=== PATIENT | female | born 1995 | race Caucasian/White ===

== ENCOUNTER 2018-06-07 17:12 | Inpatient (IN) | payer BC ==
[~2018-06-07] VITALS: Ht 162.6 cm; Wt 74.0 kg
[2018-06-07 19:28] VITALS: BP 123/88
[2018-06-07] MEDS ORDERED: mag hydrox/Alum hydrox/simeth 30ml oral suspension PO PRN (19:45)
[2018-06-07] MEDS ORDERED: magnesium hydroxide 30ml (MOM) UD suspension PO PRN (19:45)
[2018-06-07] MEDS ORDERED: acetaminophen 325mg tablet PO PRN (19:45)
[2018-06-07] MEDS: zolpidem 5mg tablet PO PRN (20:44)
[2018-06-07] MEDS: LORazepam 0.5 MG tablet PO PRN (20:44)
[2018-06-07] MEDS: hydrOXYzine 25 MG tablet PO PRN (21:39)
[2018-06-08] MEDS ORDERED: voritioxetine HBr 5mg tablet PO ONE (08:10)
[2018-06-08 08:43] VITALS: BP 132/72
[2018-06-08 08:44] LABS: HEMOGLOBIN A1C 5.2 % (4.5-6.2)
[2018-06-08 08:57] LABS: CHOL/HDL RATIO 3.4 (0.00-4.99); CHOLESTEROL 231 MG/DL (0-200); HDL CHOLESTEROL 67 MG/DL (35-60); LDL CHOLESTEROL 152 MG/DL (50-100); TRIGLYCERIDES 116 MG/DL (20-135)
[2018-06-08] MEDS ORDERED: LISD50CA3 PO (13:26)
[2018-06-08] MEDS: hydrOXYzine 25 MG tablet PO PRN ×2 (14:23→20:29)
[2018-06-08] MEDS: acetaminophen 325mg tablet PO PRN (18:46)
[2018-06-08 19:00] VITALS: BP 119/76
[2018-06-08] MEDS: zolpidem 5mg tablet PO PRN (20:29)
[2018-06-09 08:00] VITALS: BP 116/73
[2018-06-09] MEDS: hydrOXYzine 25 MG tablet PO PRN (08:03)
[2018-06-09] MEDS: voritioxetine HBr 5mg tablet PO SCH (08:03)
[2018-06-09] MEDS: LORazepam 0.5 MG tablet PO PRN ×2 (11:30→20:39)
[2018-06-09] MEDS: acetaminophen 325mg tablet PO PRN (18:08)
[2018-06-09 19:00] VITALS: BP 122/69
[2018-06-09] MEDS: zolpidem 5mg tablet PO PRN (20:39)
[2018-06-10 08:00] VITALS: BP 110/58
[2018-06-10] MEDS: hydrOXYzine 25 MG tablet PO PRN (08:07)
[2018-06-10] MEDS: voritioxetine HBr 5mg tablet PO SCH (08:07)
[2018-06-10 19:15] VITALS: BP_SYST 110; BP_SYST 124; BP_DIAS 58; BP_DIAS 74
[2018-06-10] MEDS: zolpidem 5mg tablet PO PRN (20:30)
[2018-06-10] MEDS: LORazepam 0.5 MG tablet PO PRN (20:30)
[2018-06-11] MEDS: voritioxetine HBr 5mg tablet PO SCH (07:59)
[2018-06-11 08:00] VITALS: BP 133/84
[2018-06-11] MEDS: propranolol 10mg tablet PO SCH ×2 (13:15→21:00)
[2018-06-11 19:00] VITALS: BP 115/79
[2018-06-11] MEDS: zolpidem 5mg tablet PO SCH (21:01)
[2018-06-11] MEDS: LORazepam 0.5 MG tablet PO PRN (21:02)
[2018-06-12 08:00] VITALS: BP 103/57
[2018-06-12] MEDS: voritioxetine HBr 5mg tablet PO SCH (08:07)
[2018-06-12] MEDS: propranolol 10mg tablet PO SCH ×3 (08:07→21:11)
[2018-06-12 13:00] VITALS: BP 115/76
[2018-06-12 19:00] VITALS: BP 118/72
[2018-06-12] MEDS: zolpidem 5mg tablet PO SCH (21:12)
[2018-06-12] MEDS: LORazepam 0.5 MG tablet PO PRN (21:12)
[2018-06-13 08:06] VITALS: BP 110/65
[2018-06-13] MEDS: propranolol 10mg tablet PO SCH ×3 (08:16→20:51)
[2018-06-13] MEDS: voritioxetine HBr 5mg tablet PO SCH (08:16)
[2018-06-13] MEDS: acetaminophen 325mg tablet PO PRN ×2 (09:37→19:30)
[2018-06-13 20:00] VITALS: BP 123/73
[2018-06-13] MEDS: zolpidem 5mg tablet PO SCH (20:51)
[2018-06-14] MEDS ORDERED: loratadine 10mg tablet PO SCH (08:00)
[2018-06-14 08:03] VITALS: BP 112/70
[2018-06-14] MEDS: propranolol 10mg tablet PO SCH ×2 (08:24→13:33)
[2018-06-14] MEDS: voritioxetine HBr 5mg tablet PO SCH (08:24)
[2018-06-14] MEDS ORDERED: LORA10TA65 PO (12:48)
[2018-06-14] MEDS ORDERED: VORT5TAB PO (12:48)
[2018-06-14] MEDS ORDERED: HYDR-3686 PO (12:48)
[2018-06-14] MEDS ORDERED: ZOLP10TA PO (12:48)
[2018-06-14] MEDS ORDERED: PROP10TA10 PO (12:48)
[2018-06-14] MEDS: hydrOXYzine 25 MG tablet PO PRN (13:33)
== END 2018-06-14 18:05 | disposition home or self-care (01) | DRG 885 ==
LOC: ADULT MH 17:12
PROVIDERS: ADMIT Psychiatry & Neurology Psychiatry; ATTEND Psychiatry & Neurology Psychiatry
DX: F33.2 Major depressive disorder, recurrent severe without psychotic features (principal); R45.851 Suicidal ideations; D49.7 Neoplasm of unspecified behavior of endocrine glands and other parts of nervous system; F40.10 Social phobia, unspecified; F41.0 Panic disorder [episodic paroxysmal anxiety]; F41.1 Generalized anxiety disorder; F45.22 Body dysmorphic disorder; Z81.8 Family history of other mental and behavioral disorders; Z88.8 Allergy status to other drugs, medicaments and biological substances
CPT/HCPCS: 36415; 80061; 83036; 84443; 87070; 99285; Q0177